=== PATIENT | female | born 1960 | race Caucasian/White ===

== ENCOUNTER → 2021-12-13 | Outpatient (CLI) | payer OTHER, SELFPAY ==
--- NOTE | 2021-12-13 10:25 | KNEE_PTH ---
PATIENT: KEITH VILLATORO LOC: [facility] U#:[id number] AGE/SX: 61/F ROOM: RE12/13/[address]: Dr. Chilo Oliver DO : 1960 BED: DIS: 12/13/2021 SPEC #: [id number] RECD: 12/13/21 14:57 STATUS: DAE REDanay #: [id number] SANA: 12/13/21 10:[address]: Chilo Oliver DEPT: SURGICAL PATHOLOGY RECD BY: Carmella Bender ENTERED: 12/14/21 11:14 SP TYPE: TOTAL KNEE OTHR DR: No Primary Care Phys [facility] Tissues: Knee, NOS Procedures: Decalcification bone/plaque Surgery Specimen Level IV HEADER OPERATION: Right total knee arthroplasty with robotic assistance PRE-OP DIAGNOSIS: Osteoarthritis right knee TISSUE SUBMITTED: Right knee bone and soft tissue MICROSCOPIC DIAGNOSIS Bone and soft tissue, right knee, total knee replacement/resection: Pieces of bone with degenerative osteoarthritic changes. Fibroadipose tissue, fibroconnective tissue and reactive synovial tissue. SJ:jade 12/18/2021 MICROSCOPIC DESCRIPTION Slides are reviewed. GROSS DESCRIPTION Received is one container designated bone and soft tissue right knee. The specimen consists of multiple fragments of christian-yellow bone measuring in aggregate 15 x 14 x 2 cm. Also in the specimen container are multiple fragments of yellow-white soft tissue measuring in aggregate 7.5 x 6 x 2 cm. A number of bony fragments contain articular surfaces consistent with tibial plateau and femoral condyle and displaying prominent osteophyte formation, eburnation, and bone erosion. Treatment Coordinator sections are submitted in two cassettes as follows: 1 - soft tissue, 2 - bone after decalcification. / AM:jade 12/14/2021 TC:5 [facility]: [id number]
== END | disposition home or self-care (01) ==
LOC: LABSPEC 16:09
PROVIDERS: Referring Provider Orthopaedic Surgery; Visit Provider Orthopaedic Surgery
DX: M17.11 Unilateral primary osteoarthritis, right knee (principal)
CPT/HCPCS: 88305; 88311

== ENCOUNTER → 2022-05-30 | Outpatient (CLI) | payer OTHER, SELFPAY ==
--- NOTE | 2022-05-30 07:58 | COLBX_PTH ---
PATIENT: KEITH VILLATORO LOC: [facility] U#:[id number] AGE/SX: 61/F ROOM: RE05/30/[address]: Dr. Haily Gibbs MD : 1960 BED: DIS: 05/30/2022 SPEC #: [id number] RECD: 05/31/22 12:00 STATUS: DAE ORIANA #: [id number] SANA: 05/30/22 07:[address]: Haily Gibbs DEPT: SURGICAL PATHOLOGY RECD BY: Carmella Bender ENTERED: 06/01/22 10:32 SP TYPE: COLON BX OTHR DR: No Primary Care Phys Tissues: Left colon Procedures: Surgery Specimen Level IV HEADER OPERATION: Colonoscopy PRE-OP DIAGNOSIS: Screening TISSUE SUBMITTED: Left colon polyp MICROSCOPIC DIAGNOSIS Left colon polyp, biopsy: Fragments of colonic mucosa with focal hyperplastic change. AM:jade 06/01/2022 MICROSCOPIC DESCRIPTION Slides are reviewed. GROSS DESCRIPTION Received in fixative is one container labeled with the patient's name and designated left colon polyp. The specimen consists of one irregular fragment of light christian soft tissue that measures 0.7 x 0.2 x 0.1 cm. The specimen is totally submitted in one cassette. / AM:jade 06/01/2022 TC:5 CPT: 51167
== END | disposition home or self-care (01) ==
LOC: LABSPEC 06-01 09:46
PROVIDERS: Visit Provider Surgery
DX: Z12.11 Encounter for screening for malignant neoplasm of colon (principal)
CPT/HCPCS: 88305